=== PATIENT | female | born 1990 | race Caucasian/White ===

== ENCOUNTER 2016-07-03 17:41 | Emergency (ER) | payer OTHER ==
[~2016-07-03] VITALS: Ht 175.3 cm; Wt 79.4 kg
[~2016-07-03 17:41] MED LIST: BIOTIN2500 MCG PO; CAMBIA50 MG PO; FIORICET 50-301 EACH PO; GILDESS FE 1/201 TAB PO; GILDESS FE PO; IMITREX50 M1 PO; LORAZEPAM0.5 M1 PO; MONONESSA PO; ONDANSETRON HCL4 MG PO; ONDANSETRON4 M1 PO; OXYBUTYNIN CHLO10 M1 PO; PHENERGAN25 MG/1 ML PO; RELPAX 40MG40 MG PO; SEA-OMEGA 50 C1 EACH PO; TRINESSA TABLE1 EACH PO; VICODIN ES 3001 TAB PO; VITAB121000 PO; VITAMIN B-121000 MC3 PO; VITAMIN C500 M8 PO
--- NOTE | 2016-07-03 18:55 | ED HEADACHE COMPLAINT ---
History of Present Illness General Chief Complaint: Headache Stated Complaint: MIGRAINE X2 DAYS Source: patient, family, old records Exam Limitations: no limitations Vital Signs & Intake/Output Vital Signs & Intake/Output Vital Signs Date Time Temp Pulse Resp B/P Pulse O2 O2 Flow FiO2 Ox Delivery Rate 07/03 2051 98.8 83 18 141/84 100 Room Air 07/03 1752 98.2 101 18 168/109 97 Room Air Allergies Coded Allergies: metoclopramide (From REGLAN) (HYPER 12/27/15) Reconcile Medications Alprazolam 0.5 MG TABLET ANXIETY (Reported) Ascorbic Acid (Vitamin C) (Unknown Strength) TABLET (Unknown Dose) PO DAILY SUPPLEMENT (Reported) Biotin (Unknown Strength) CAPSULE (Unknown Dose) PO DAILY SUPPLEMENT ( Reported) Butalb/Acetaminophen/Caffeine (Fioricet 50-300-40 MG Capsule) 50 MG-300 MG-40 MG CAPSULE 1 TAB PO Q6HR PRN HEADACHE Cyanocobalamin (Vitamin B-12) (Unknown Strength) TABLET (Unknown Dose) PO DAILY SUPPLEMENT (Reported) Fish Oil (Sea-[place]reas 50 Capsule) 1 EACH CAPSULE 1 CAP PO DAILY SUPPLEMENT ( Reported) Lorazepam 0.5 MG TABLET 1 TAB PO PRN ANXIETY - FOR FLYING (Reported) Naratriptan HCl 2.5 MG TABLET 1 TAB PO PRN STACY (Reported) Norgestimate-Ethinyl Estradiol (Trinessa Tablet) 1 EACH TABLET 1 TAB PO DAILY CONTROL (Reported) Ondansetron HCl 4 MG TABLET 1 TAB PO PRN N/V (Reported) Oxybutynin Chloride (Oxybutynin Chloride ER) 10 MG TAB.ER.24 1 TAB PO DAILY OVERACTIVE BLADDER (Reported) Promethazine HCl (Phenergan) 25 MG/1 ML AMPUL 1 ML PO Q6 PRN NAUSEA Sumatriptan Succinate (Imitrex) 50 MG TABLET 1 TAB PO AD PRN MIGRAINES ( Reported) Triage Note: REPORTS BAD MIGRAINE SINCE YESTERDAY. HAS BEEN TAKING PRESCRIBED MEDICATIONS WITH LITTLE RELIEVE. DENIED VISUAL DISTURBANCE. Triage Nurses Notes Reviewed? yes Onset: Abrupt Duration: day(s): (2) Timing: recent history Quality/Severity: moderate, severe, achy, constant Severity Numbers: 7 Head Injury Location: frontal No Modifying Factors: none Associated Symptoms: photophobia, nausea : No Patient currently breastfeeds: No HPI: 26-year-old female with history of chronic migraines presents to the emergency room complaining of 2 day history of a left frontal migraine headache unrelieved with taking her Imitrex associated with nausea and photophobia. She reports this feels similar to her migraines in the past for which she has been seen here. She is scheduled to see her neurologist in 3 days. She denies vomiting there is been no recent fall or head trauma no change in her mental status per family no fever no chills no neck pain or stiffness. There are no modifying factors or associated symptoms otherwise Pain is constant sharp and aching (JALIL SINGH) Past History Travel History Traveled to [place] past 21 day No Medical History Any Pertinent Medical History? see below for history Neurological: migraine EENT: NONE Cardiovascular: NONE Respiratory: NONE Gastrointestinal: NONE Hepatic: NONE Renal: NONE Musculoskeletal: NONE Psychiatric: NONE Endocrine: NONE Blood Disorders: NONE Cancer(s): NONE Surgical History Surgical History: non-contributory Psychosocial History What is your primary language Irish Tobacco Use: Never used Family History Hx Contributory? No (JALIL SINGH) Review of Systems Review of Systems Constitutional: Reports: see HPI. All Other Systems: Reviewed and Negative Comments Review of systems: See HPI, All other systems negative. Constitutional, no chills no fever, no malaise HEENT: No visual changes no sore throat no congestion, Cardiovascular: No chest pain , no palpitation Skin,no rashes, no change in skin Respiratory: No dyspnea no cough no sputum GI: No nausea no vomiting, no diarrhea : No dysuria Muscle skeletal: No joint pain, no back pain, no neck pain, Neurologic: No numbness no confusion headache Psych: No stress Heme/endocrine: No bruising no bleeding Immunology: No lymphadenopathy (JALIL SINGH) Physical Exam Physical Exam General Appearance: well developed/nourished, no apparent distress, alert, awake , comfortable Cranial Nerves: normal hearing, normal speech, PERRL Comments: Well-developed well-nourished person in no acute distress HEENT: Normal EENT exam; PERRL, EOMI, no nystagmus. HEAD is atraumatic. moist mucous membranes. Neck: Supple, no lymphadenopathy, normal range of motion without pain or tenderness, negative Brudzinski sign Back: Nontender, Full range of motion Cardiovascular: Regular rate and rhythms no murmurs rubs Respiratory: No respiratory distress. Patient speaking in full complete sentences. Breath sounds clear to auscultation bilaterally: NO W/R/R Abdomen: Soft, nontender nondistended Extremity: No edema, full range of motion of extremities, Neuro: Alert oriented x3, motor sensory normal, cranial nerves II through XII grossly intact. There were no obvious focal neurologic abnormalities. Skin: No appreciable rash on exposed skin, skin is warm and dry. Psych: Mood and affect is normal, memory and judgment is normal. Core Measures Severe Sepsis Present: No Septic Shock Present: No (JALIL SINGH) Progress Differential Diagnosis: cluster STACY, encephalitis, IC mass/tumor, intracranial Hem., meningitis, migraine STACY, musculoskeletal pain, sinusitis, subarach. Hem., tension STACY, temporal arteritis, TMJ syndrome, viral cephalgia Plan of Care: Current Medications Sig/Dia Start time Last Medication Dose Stop Time Status Admin Sodium Chloride 1,000 ML BOLUS ONE 07/03 2029 AC (Normal Saline 0.9%) 07/03 2128 Patient medicated with Toradol 30 Benadryl 50 Phenergan 12.5 IV IV fluids old records reviewed patient clinically appears well using her phone in the hallway appears in no apparent distress Patient reports no improvement in her pain she states that when she comes here she normally gets morphine which helps with her symptoms 4 mg IV ordered On repeat evaluation she reports the edge has been taken off however still present nausea still present as well she's had no episodes of vomiting here. case d/w dr russell After the patient is medicated with additional 2 mg of morphine 12.5 of Phenergan she reports she is feeling better and would like to be discharged. Patient clinically appears well again appears in no apparent distress she's had no vomiting in this department, there are no neurologic deficits noted an outpatient require further workup at this time which she and her mother are in agreement with she will follow up with her neurologist as scheduled on she will return anytime sooner with any concerns (JALIL SINGH) Departure Departure Time of Disposition: 2130 Disposition: HOME OR SELF CARE Condition: Stable Clinical Impression Primary Impression: Migraine Referrals: BYRON ALFRED,JUDIE Linares (PCP/Family) Additional Instructions: Follow-up with your neurologist as scheduled this week. Fioricet for your headache continue taking your medications as prescribed otherwise return with any concerns Departure Forms: Customer Survey General Discharge Information Prescriptions: Current Visit Scripts Butalb/Acetaminophen/Caffeine (Fioricet 50-300-40 MG Capsule) 1 TAB PO Q6HR PRN HEADACHE #15 (JALIL SINGH) PA/RESIDENCE COUNSELOR Co-Sign Statement Statement: ED Attending supervision documentation- [] I saw and evaluated the patient. I have also reviewed all the pertinent lab results and diagnostic results. I agree with the findings and the plan of care as documented in the PA's/RESIDENCE COUNSELOR's documentation. [X] I have reviewed the ED Record and agree with the PA's/RESIDENCE COUNSELOR's documentation. [] Additions or exceptions (if any) to the PAs/RESIDENCE COUNSELOR's note and plan are summarized below: [] (LATIA ALFRED,[place])
[2016-07-03] MEDS ORDERED: ALPRAZOLAM0.5 M4 (19:29)
[2016-07-03] MEDS ORDERED: NARATRIPTAN HC2.5 MG PO (19:29)
[2016-07-03 20:52] VITALS: BP 141/84
[2016-07-03] MEDS ORDERED: FIORICET 50-301 EACH PO (21:32)
== END 2016-07-03 21:43 ==
LOC: ERH 17:41
DX: G43.909 Migraine, unspecified, not intractable, without status migrainosus (principal)
CPT/HCPCS: 96361; 96374; 96375; 96376; J1200; J1885; J2550